=== PATIENT | female | born 1970 | race Hispanic/Latino ===

== ENCOUNTER 2019-11-18 07:58 | Inpatient (IN) ==
[2019-11-18] MEDS ORDERED: MORPHINE IV ONE (08:20)
[2019-11-18] MEDS ORDERED: TORADOL IV ONE ×2 (08:20→08:28)
[2019-11-18] MEDS ORDERED: NS 1,000 ML IV ONE ×3 (08:20→10:20)
[2019-11-18] MEDS ORDERED: ZOFRAN IV ONE (08:20)
--- NOTE | 2019-11-18 08:37 | PROVIDER DOCUMENTATION ---
HPI-Fever - General Chief Complaint: Flu Symptoms Stated Complaint: VOMITING / COLD SX Time Seen by Provider: 11/18/19 08:15 Allergies/Adverse Reactions: Patient Allergies Allergy/AdvReac Type Severity Reaction Status Date / Time No Known Allergies Allergy Verified 11/18/19 08:40 Home Medications: Home Medication List Medication Instructions Recorded Confirmed Last Taken Type NK [No Home Medications] 11/18/19 11/18/19 Unknown History - History of Present Illness-Fever Nature of Presenting Problem: patient presented with fever, flu like symptoms since sat, associated with vomiting, body aching, blood pressure was low Onset/Duration: reports: 3 days ago Timing: reports: still present Severity: reports: moderate Recent Illness?: reports: none Cognitive Baseline: alert, oriented x3 Modifying Factors: improves with: nothing, vomiting Associated Symptoms: reports: anxiety, arm pain Similar Symptoms Previously?: Yes - Glascow Coma Score Best Eye Response (Monisha): (4) open spontaneously Best Verbal Response ([place]): (5) oriented Best Motor Response (Monisha): (6) obeys commands Review of Systems - Adult - REVIEW OF SYSTEMS - ADULT Constitutional: reports: jessieque. denies: fever Eyes: reports: no symptoms reported Ears, Nose, Mouth & Throat: reports: no symptoms reported Cardiovascular: reports: no symptoms reported Respiratory: reports: no symptoms reported Gastrointestinal: reports: no symptoms reported Genitourinary: reports: no symptoms reported Integumentary: reports: no symptoms reported Neurological: reports: no symptoms reported Psychiatric: reports: no symptoms reported Endocrine: reports: no symptoms reported Hematologic/Lymphatic: reports: no symptoms reported Allergic/Immunologic: reports: no symptoms reported Past History - Adult - PAST MEDICAL HISTORY-ADULT Review of Records: reports: Nursing Assessment Review Major Childhood Illnesses: reports: denies history Cardiovascular: reports: denies history Respiratory: reports: denies history Gastrointestinal: reports: denies history Obstetrical/Gynecological: reports: denies history Genitourinary: reports: denies history Musculoskeletal: reports: denies history Neurological: reports: denies history Endocrine/Immune: reports: denies history Other Conditions: reports: denies history Physical Exam-General - PHYSICAL EXAM-ADULT Initial Vital Signs Reviewed: Yes - CONSTITUTIONAL General Appearance: alert, slow to respond (tired looling) - EYES Eyes: PERRL/EOMI - HEAD, EARS, NOSE, MOUTH & THROAT HENMT: normocephalic/atraumatic - NECK Neck: non-tender, supple - RESPIRATORY Respiratory: lungs clear, normal breath sounds - CARDIOVASCULAR Cardiovascular: regular rate, rhythm, no edema - GASTROINTESTINAL (ABDOMEN) Abdominal Exam: non tender, soft, other (rectal exam, stool was brown, no active blood) - LYMPHATIC Lymphatic: no adenopathy - MUSCULOSKELETAL Back Exam: normal inspection, no vertebral tenderness Extremity: non-tender, normal gait - SKIN Integumentary: normal turgor, warm/dry - NEUROLOGIC Neurologic: grossly normal - PSYCHIATRIC Psych/Mental Status: normal mood/affect Progress - PLAN OF CARE/RESULTS Progress/Plan/Lab Results: Vital Signs - 8 hr 11/18/19 08:07 11/18/19 08:47 Temperature 98.6 F Pulse Rate 108 H Respiratory Rate 18 Blood Pressure 96/56 116/65 O2 Sat by Pulse Oximetry 95 Laboratory Results - last 24 hr 11/18/19 11/18/19 11/18/19 08:30 08:30 08:40 WBC RBC Hgb Hct MCV MCH MCHC RDW Std Deviation Plt Count MPV Immature Gran % (Auto) Neut % (Auto) Lymph % (Auto) [place] % (Auto) Eos % (Auto) Baso % (Auto) Immature Gran # (Auto) Neut # (Auto) Lymph # (Auto) [place] # (Auto) Eos # (Auto) Baso # (Auto) Segmented Neutrophils Sodium Potassium Chloride Carbon Dioxide Anion Gap BUN Creatinine Estimated GFR/1.73 m2 BUN/Creatinine Ratio Glucose Calculated Osmolality Calcium Total Bilirubin AST ALT Alkaline Phosphatase Creatine Kinase 23 L Troponin T < 0.010 Total Protein Albumin Globulin Albumin/Globulin Ratio Amylase Lipase Urine Source CLEAN CATCH Urine Color YELLOW Urine Turbidity TURBID Urine pH 6.0 Ur Specific [place] 1.028 Urine Protein 200 A Ur Glucose (Stick) NEGATIVE Ur Ketones (Stick) TRACE A Urine Blood SMALL A Urine Nitrite NEGATIVE Urine Bilirubin NEGATIVE Urobilinogen Dipstick 6 A Urine Leukocytes SMALL A Urine WBC (Auto) 10-20 A Urine RBC (Auto) <10 U Epithel Cells (Auto) >10 A Urine Bacteria (Auto) 4+ Urine Crystals NONE SEEN Small Round Cells NONE SEEN Urine Casts GRANULAR PRESENT Urine Yeast-like Cells NONE SEEN Stool Occult Blood Influenza A (Rapid) Influenza B (Rapid) Blood Type Confirm Crossmatch 11/18/19 11/18/19 11/18/19 08:45 08:45 08:45 WBC 17.84 H RBC 1.80 L Hgb 5.2 L* Hct 17.4 L MCV 96.7 MCH 28.9 MCHC 29.9 L RDW Std Deviation 21.1 H Plt Count 257 MPV 9.1 Immature Gran % (Auto) 5.4 H Neut % (Auto) 58.5 Lymph % (Auto) 20.4 L [place] % (Auto) 14.0 H Eos % (Auto) 1.3 Baso % (Auto) 0.4 Immature Gran # (Auto) 0.96 H Neut # (Auto) 10.45 H Lymph # (Auto) 3.64 H [place] # (Auto) 2.49 H Eos # (Auto) 0.23 Baso # (Auto) 0.07 Segmented Neutrophils Not Reportable Sodium 132 L Potassium 3.7 Chloride 100 Carbon Dioxide 21 L Anion Gap 11 BUN 33 H Creatinine 0.9 Estimated GFR/1.73 m2 > 60 BUN/Creatinine Ratio 37 Glucose 114 H Calculated Osmolality 273 Calcium 8.8 Total Bilirubin 0.70 AST 60 H ALT 51 H Alkaline Phosphatase 112 H Creatine Kinase Troponin T Total Protein 10.1 H Albumin 2.5 L Globulin 8.0 Albumin/Globulin Ratio 0.0 Amylase 60 Lipase 26 Urine Source Urine Color Urine Turbidity Urine pH Ur Specific [place] Urine Protein Ur Glucose (Stick) Ur Ketones (Stick) Urine Blood Urine Nitrite Urine Bilirubin Urobilinogen Dipstick Urine Leukocytes Urine WBC (Auto) Urine RBC (Auto) U Epithel Cells (Auto) Urine Bacteria (Auto) Urine Crystals Small Round Cells Urine Casts Urine Yeast-like Cells Stool Occult Blood Influenza A (Rapid) Influenza B (Rapid) Blood Type Confirm Crossmatch 11/18/19 11/18/19 11/18/19 08:45 09:07 09:48 WBC RBC Hgb Hct MCV MCH MCHC RDW Std Deviation Plt Count MPV Immature Gran % (Auto) Neut % (Auto) Lymph % (Auto) [place] % (Auto) Eos % (Auto) Baso % (Auto) Immature Gran # (Auto) Neut # (Auto) Lymph # (Auto) [place] # (Auto) Eos # (Auto) Baso # (Auto) Segmented Neutrophils Sodium Potassium Chloride Carbon Dioxide Anion Gap BUN Creatinine Estimated GFR/1.73 m2 BUN/Creatinine Ratio Glucose Calculated Osmolality Calcium Total Bilirubin AST ALT Alkaline Phosphatase Creatine Kinase Troponin T Total Protein Albumin Globulin Albumin/Globulin Ratio Amylase Lipase Urine Source Urine Color Urine Turbidity Urine pH Ur Specific [place] Urine Protein Ur Glucose (Stick) Ur Ketones (Stick) Urine Blood Urine Nitrite Urine Bilirubin Urobilinogen Dipstick Urine Leukocytes Urine WBC (Auto) Urine RBC (Auto) U Epithel Cells (Auto) Urine Bacteria (Auto) Urine Crystals Small Round Cells Urine Casts Urine Yeast-like Cells Stool Occult Blood Influenza A (Rapid) NEGATIVE Influenza B (Rapid) NEGATIVE Blood Type Confirm O POSITIVE Crossmatch See Detail 11/18/19 09:50 WBC RBC Hgb Hct MCV MCH MCHC RDW Std Deviation Plt Count MPV Immature Gran % (Auto) Neut % (Auto) Lymph % (Auto) [place] % (Auto) Eos % (Auto) Baso % (Auto) Immature Gran # (Auto) Neut # (Auto) Lymph # (Auto) [place] # (Auto) Eos # (Auto) Baso # (Auto) Segmented Neutrophils Sodium Potassium Chloride Carbon Dioxide Anion Gap BUN Creatinine Estimated GFR/1.73 m2 BUN/Creatinine Ratio Glucose Calculated Osmolality Calcium Total Bilirubin AST ALT Alkaline Phosphatase Creatine Kinase Troponin T Total Protein Albumin Globulin Albumin/Globulin Ratio Amylase Lipase Urine Source Urine Color Urine Turbidity Urine pH Ur Specific [place] Urine Protein Ur Glucose (Stick) Ur Ketones (Stick) Urine Blood Urine Nitrite Urine Bilirubin Urobilinogen Dipstick Urine Leukocytes Urine WBC (Auto) Urine RBC (Auto) U Epithel Cells (Auto) Urine Bacteria (Auto) Urine Crystals Small Round Cells Urine Casts Urine Yeast-like Cells Stool Occult Blood NEGATIVE Influenza A (Rapid) Influenza B (Rapid) Blood Type Confirm Crossmatch Orders Category Date Time Status Cardiac Monitoring DIRECTED Care 11/18/19 09:19 Active IV Insertion ORDERED Care 11/18/19 09:19 Active Saline Loc DIRECTED Care 11/18/19 08:28 Active NPO Diet 11/18/19 08:28 Active AMYLASE [CHEM] Stat Lab 11/18/19 08:45 Completed BLOOD CULTURE [BLDCUL] Stat Lab 11/18/19 09:32 Ordered CBC WITH ELECTRONIC DIFF [HEME] Stat Lab 11/18/19 08:45 Completed CK PROFILE [SP CHEM] Stat Lab 11/18/19 08:30 Completed COMPREHENSIVE METABOLIC PANEL [CHEM] Stat Lab 11/18/19 08:[address] Stat Lab 11/18/19 09:07 Completed LACTATE, PLASMA [CHEM] Lab 11/18/19 09:48 Received LACTATE, PLASMA [CHEM] Lab 11/18/19 12:30 Uncollected LACTATE, PLASMA [CHEM] Lab 11/18/19 15:30 Uncollected LIPASE [CHEM] Stat Lab 11/18/19 08:45 Completed LRPC (RED CELLS) [BBK] Stat Lab 11/18/19 09:48 Results OCCULT BLOOD SCREEN STOOL PL Stat Lab 11/18/19 09:50 Completed PROTIME WITH INR [COAG] Stat Lab 11/18/19 09:48 Received PTT [COAG] Stat Lab 11/18/19 09:48 Received TROPONIN T Stat Lab 11/18/19 08:30 Completed TYPE & SCREEN [BBK] Stat Lab 11/18/19 09:48 Results URINALYSIS W/POSS RFLX CULT [URINALYSIS] Stat Lab 11/18/19 08:40 Completed URINE CULTURE [RM] Routine Lab 11/18/19 09:15 Ordered URINE MANUAL MICROSCOPIC [URINALYSIS] Stat Lab 11/18/19 08:40 Completed 0.9% Sodium Chloride Inj [Ns] 1,000 ml Med 11/18/19 08:20 Discontinued IV 999 mls/hr 0.9% Sodium Chloride Inj [Ns] 1,000 ml Med 11/18/19 08:28 Discontinued IV 999 mls/hr Ketorolac [Toradol] Med 11/18/19 08:20 Discontinued 30 mg IV NOW ONE Ketorolac [Toradol] Med 11/18/19 08:28 Discontinued 30 mg IV NOW ONE Morphine Med 11/18/19 08:20 Discontinued 4 mg IV NOW ONE Ondansetron [Zofran] Med 11/18/19 08:20 Discontinued 4 mg IV NOW ONE Result Diagrams: 11/18/19 08:45 11/18/19 08:45 - CONSULTS/PCP/HOSPITALIST Notification Time Discussed: 10:07 Consult Disposition: Admit (OK to admit) Departure - Departure Date of Disposition Decision: 11/18/19 Time of Disposition Decision: 09:53 DIAGNOSIS: Flu-like symptoms Anemia Qualifiers: Anemia type: unspecified type Qualified Code(s): D64.9 - Anemia, unspecified Disposition: ADMITTED INPATIENT 09 Certified Medical Emergency: Emergent Condition: Serious Referrals and Follow-Ups: None,PCP [Primary Care Provider] - - Critical Care Note This patient required my direct & personal management of CC.: No Attestation - Physician/ GILSON Attestation Patient care was provided by Advanced Practice Provider:: No The physician spent face to face time with patient:: Yes Advanced Practice Provider documentation review:: Supervising physician onsite and consulted in the evaluation and care of this patient. The physician did have a face to face encounter with the patient.
[2019-11-18 08:53] LABS: URINE SOURCE CLEAN CATCH
[2019-11-18 08:57] LABS: BILIRUBIN URINE NEGATIVE (NEGATIVE); BLOOD URINE SMALL (NEGATIVE); COLOR YELLOW; GLUCOSE URINE NEGATIVE (NEGATIVE); KETONE URINE TRACE mg/dL (NEGATIVE); LEUKOCYTES URINE SMALL (NEGATIVE); NITRITE URINE NEGATIVE (NEGATIVE); PROTEIN URINE 200 mg/dL (NEGATIVE); SP GRAVITY URINE 1.028; TURBIDITY URINE TURBID (CLEAR); UROBILINOGEN URINE 6 mg/dL (NORMAL)
[2019-11-18 09:08] LABS: BASO# 0.07 X1000 (0.0-0.2); BASO% 0.4 % (0.0-0.8); EOS# 0.23 X1000 (0.0-0.7); EOS% 1.3 % (0.0-10.0); HEMATOCRIT 17.4 % (37.0-47.0); IMM GRAN# 0.96 X1000 (0.0-0.04); IMM GRAN% 5.4 % (0.0-0.5); LYMPH# 3.64 X1000 (1.2-3.4); LYMPH% 20.4 % (20.5-51.1); MCH 28.9 PG (27-31); MCHC 29.9 g/dL (33-37); MCV 96.7 FL (81-99); MONO# 2.49 X1000 (0.11-0.59); MPV 9.1 FL (7.4-10.4); NEUT# 10.45 X1000 (1.4-6.5); NEUT% 58.5 % (42.2-75.2); PLT 257 X1000 (130-400); RDW 21.1 % (11.5-14.5); WBC 17.84 X1000 (4.8-10.8)
[2019-11-18 09:09] LABS: HEMOGLOBIN 5.2 g/dL (12.0-16.0)
[2019-11-18 09:15] LABS: UR EPITHELIAL CELLS >10 /HPF (<10); URINE BACTERIA 4+ /HPF; URINE RBC <10 /HPF (<10)
[2019-11-18 09:16] LABS: URINE CASTS GRANULAR PRESENT; URINE CRYSTALS NONE SEEN; URINE SMALL ROUND CELLS NONE SEEN; URINE YEAST NONE SEEN
[2019-11-18 09:30] LABS: INFLUENZA A NEGATIVE (NEGATIVE); INFLUENZA B NEGATIVE (NEGATIVE)
[2019-11-18 09:33] LABS: AGAP 11; ALBUMIN 2.5 g/dL (3.5-5.0); ALKALINE PHOSPHATASE 112 U/L (32-104); BUN 33 mg/dL (8-22); CALCIUM 8.8 mg/dL (8.8-10.2); CHLORIDE 100 mmol/L (98-107); COSMO 273; CREATININE 0.9 mg/dL (0.5-0.9); ESTIMATED GFR > 60; GLUCOSE 114 mg/dL (70-104); GOT 60 U/L (10-30); GPT 51 U/L (10-36); LIPASE 26 U/L (13-60); POTASSIUM 3.7 mmol/L (3.5-5.1); SODIUM 132 mmol/L (136-145); TCO2 21 mmol/L (25-35); TOTAL PROTEIN 10.1 g/dL (6.3-8.3)
[2019-11-18 10:02] LABS: OCCULT BLOOD 1 NEGATIVE (NEGATIVE)
[2019-11-18 10:09] LABS: INR 1.14; PROTIME 15.2 Seconds (11.0-16.0); PTT 25.8 Seconds (22.3-41.8)
[2019-11-18] MEDS ORDERED: VANCOMYCIN IV PER PHARMACY MISC SCH (10:15)
[2019-11-18 10:29] LABS: RETIC% 0.8 % (0.8-2.1); RETIC-HE 23.2 PG (28.2-36.6)
[2019-11-18 10:32] LABS: IRON SATURATION 31 %; TIBC 137 ug/dL; TOTAL IRON 42 ug/dL (49-151); UNBOUND IRON 95 ug/dL (112-346)
--- NOTE | 2019-11-18 10:42 | Diag Imaging Result Doc PS360 ---
FLAT/UPRIGHT ABD/1 VIEW CHEST - 11/18/2019 INDICATION: anemia; leukocytosis TECHNIQUE: COMPARISON: None FINDINGS: There are moderately extensive central and bibasilar infiltrates bilaterally that are ill-defined. These are mainly alveolar. Heart size is normal. No pneumothorax or pleural effusion. There is a nonobstructive bowel gas pattern. No free air or abnormal calcifications. IMPRESSION: Bilateral central and basilar infiltrates suggesting bronchopneumonia. Electronically signed by Jonny Prado 11/18/2019 10:39 AM
[2019-11-18] MEDS ORDERED: NS 1,000 ML ONE (10:45)
[2019-11-18] MEDS: ZOSYN 3.375 GM in NS 50 ML IV SCH ×2 (10:54→19:02)
[2019-11-18] MEDS ORDERED: VANCOMYCIN 1 GM/NS 1 GM/250 ML IVPB IV SCH (11:00)
--- NOTE | 2019-11-18 11:15 | Diag Imaging Result Doc PS360 ---
CT ABD/PELVIS W/IV CONT ONLY - 11/18/2019 INDICATION: n/v; fever; hx PID; hx abscess COMPARISON: 05/23/2015 FINDINGS: There are numerous tiny lytic bony lesions diffusely throughout the entire skeleton, numbering in the thousand. These were not present previously. There are moderate infiltrates in the lung bases mainly in the lower lobes. These appear alveolar. Heart size is grossly normal. The liver, gallbladder, spleen, pancreas, adrenals, and kidneys are normal. There is enlargement of the uterine cervix. This measures 4.3 x 5.1 cm in AP and lateral dimensions. This is also hypoenhancing. Remainder of the uterus appears normal. Urinary bladder and rectum are normal. No adenopathy. No fluid collections. No bowel obstruction or inflammation. Normal appendix. IMPRESSION: 1. Extensive bibasilar infiltrates suggesting bronchopneumonia. 2. Numerous lytic lesions throughout the entire skeleton indicating severe metastatic disease. The source is unclear. Full workup will be necessary. 3. Slightly abnormal appearance of the uterine cervix. Visual inspection recommended. This exam was performed using automated exposure control, adjustment of mA or kV according to patient size, and/or use of iterative reconstruction technique Electronically signed by Jonny Prado 11/18/2019 11:13 AM
[2019-11-18] MEDS ORDERED: TYLENOL PO PRN ×2 (11:20→20:11)
[2019-11-18] MEDS ORDERED: ZOFRAN IV PRN (11:20)
[2019-11-18] MEDS ORDERED: PROTONIX 80 MG in NS 80 ML IV SCH (11:30)
--- NOTE | 2019-11-18 12:45 | Diag Imaging Result Doc PS360 ---
US PELVIC NON-OB COMPLETE - 11/18/2019 INDICATION: check for uterine mass TECHNIQUE: COMPARISON: None FINDINGS: There is ill-defined hypoechogenicity of the uterine cervix. This is poorly visible on this portable transabdominal exam. No free fluid. The ovaries are normal. The uterus measures 9 x 6.4 x 5.8 cm. Endometrial stripe thickness is 2.1 cm. The right ovary measures 3.1 x 2.4 x 1.8 cm. The left ovary measures 4.7 x 4.6 x 3.1 cm. IMPRESSION: Suboptimal exam of the uterine cervix. Cervical mass cannot be excluded. Again, physical exam recommended. Electronically signed by Jonny Prado 11/18/2019 12:43 PM
[2019-11-18] MEDS ORDERED: CARAFATE LIQUID PO SCH (14:00)
[2019-11-18 14:27] LABS: FERRITIN 286 ng/mL (13-150)
--- NOTE | 2019-11-18 15:16 | HISTORY AND PHYSICAL ---
PRIMARY CARE PROVIDER: None. CHIEF COMPLAINT: Suprapubic pain along with the nausea, vomiting, and black tarry stools. HISTORY OF PRESENT ILLNESS: Ms. Hanna Unger is a 49-year-old female that speaks only [place]ish, presents today with complaints of black tarry stools since . She has about 2 times a day bowel movement, along with some nausea, vomiting. The emesis is yellow in color. She has been having dizziness, lightheadedness, being pale, weak, fatigued, and some subjective fevers with chills. Denies any other urinary symptoms other than the suprapubic tenderness. There is no abdominal pain anywhere else. Lab work reveals that she has anemia with a hemoglobin of 5, hematocrit of 17. There is some mild iron deficiency. Urinalysis reveals a urinary tract infection. Abdominal and pelvic CT also shows some bronchopneumonia. There are also some lytic lesions throughout the entire skeleton which is indicated by some sort of severe metastatic disease. There is a slightly abnormal appearance of the uterus and cervix, its enlarged. So the question is whether she has a uterine cancer with metastasis to the bone, along with severe anemia and possible upper GI bleed as the stools are black tarry. Denied coughing up any colors. It is also noted that she denies taking any medications that can be GI irritating, such as ibuprofen or aspirin. PAST MEDICAL HISTORY: 1. Pelvic inflammatory disease. 2. Tubo-ovarian abscess. SURGICAL HISTORY: 1. Oophorectomy. 2. Left hand surgery due to accidental injection. SOCIAL HISTORY: Denies tobacco, alcohol, or illicit drug use. She works at the [employer]. She is not . No kids. FAMILY HISTORY: Mother had hypertension. Father, she did not know. ALLERGIES: No known drug allergies. HOME MEDICATIONS: None. REVIEW OF SYSTEMS: Fourteen point review of systems are complete and all are negative except for those mentioned above in HPI. PHYSICAL EXAMINATION: VITAL SIGNS: Temperature 98.6 degrees, heart rate 108, respiratory rate 18, blood pressure 116/65, O2 saturation 95% on room air. She is 4 feet 9 inches tall, 140 pounds, BMI is 30.3. GENERAL: Ms. Hanna Unger is a 49-year-old female. She is in no acute distress. She is able to answer questions appropriately through her friend who speaks [place] as well. We will also need to get her a hotline set up for communication. HEENT: Atraumatic, normocephalic. Pupils equal, round, reactive to light. Extraocular movements intact. Mucous membranes are dry. Sclera is pale. NECK: Trachea midline. CARDIOVASCULAR: S1, S2. Tachycardic rate and rhythm. No rubs, gallops, murmurs. No lower extremity edema. There are +2 dorsalis and radial pulses. Negative JVD or carotid bruits. PULMONARY: Clear to auscultation bilateral breath sounds. No accessory muscle use or work of breathing noted. GI: Soft. Tender in the suprapubic region. Hypoactive bowel sounds. EXTREMITIES: Moves all extremities equally. Full range of motion. NEUROLOGIC: A O x3. Follows commands. Sensory is intact. SKIN: Warm, dry, intact but pale. LABORATORY DATA: White blood cells 17,000 hemoglobin 5, hematocrit 17, platelet count 257,000. INR is 1.14, PTT is 25.8. Sodium 132, potassium 3.7, BUN 33, creatinine 0.9, glucose 114, calcium 8.8. Iron is 42, total iron binding capacity is 137, saturation 31, unsaturated 95. Ferritin is pending. Bilirubin 0.70, AST 60, ALT 51, alkaline phosphatase 112. CK 23. Troponin less than 0.01. Albumin is 2.5. Her protein level is elevated at 10. Amylase 60, lipase 26, lactate 1.0. Vitamin B12 1,633. Urinalysis, 200 protein, trace ketones, small blood, 6 urobilinogen, small leukocytes, 10 to 20 white blood cells, 4+ bacteria. Negative for blood in the stool. Negative flu. IMAGING: Abdominal x-ray and chest x-ray: Bilateral central and basilar infiltrates suggesting bronchopneumonia. Abdominal and pelvic CT: Extensive bibasilar infiltrates suggesting bronchopneumonia. Numerous lytic lesions throughout the entire skeleton, indicating severe metastatic disease. The source is unclear; full workup will be necessary. Slightly abnormal appearance of uterus and cervix, visual inspection recommended. ASSESSMENT AND PLAN: 1. Symptomatic anemia, possible from newly found cancer or from upper gastrointestinal bleed. There are reports of black tarry stools since . However, there is no blood in the stool sample that was obtained. She does have nausea, vomiting along with it. She has been lightheaded and dizzy, pale, fatigued, weak, diarrhea twice a day since . We will do Protonix drip, Carafate, and GI consult. Denies any medications that could be irritating to the stomach lining. We will do q.6 hours hemoglobin and hematocrit just to make sure she does not continue to drop in her hemoglobin. She will receive 2 units of packed red blood cells. 2. Bronchopneumonia. We will do a sputum culture. She is on vancomycin and Zosyn as she has an elevated white count of 17,000. There are no signs or symptoms of respiratory distress or hypoxia. 3. Urinary tract infection. The only symptom is suprapubic tenderness and again, she is on Zosyn which will cover gram-negative but she is also on vancomycin as well. She is getting IV fluid hydration. 4. 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 There is report of the abnormal appearance of the uterus and cervix. We are going to get a ultrasound of this to fully evaluate and may possibly have to get a LOGGER consult. Hematology/Oncology has also been consulted. In the imaging it shows a 4.3 x 5.1, lateral dimensions of the cervix on the uterus, so it could be more cervical cancer. 5. History of pelvic inflammatory disease and tubo-ovarian abscess. 6. Deep venous thrombosis prophylaxis. SCDs. Dictated by PRAVEENA Nathan for Long Chaudhari MD Addendum: Patient seen and examined by myself. Agree with PRAVEENA note. It reflects my assessment and plan. Patient is being admitted to hospital for anemia. We are not sure if there is any GI bleeding causing this anemia or malignancy. In CT of abdomen there is multiple bony mets. Will transfer this patient to [facility]. We have ordered to transfuse 2 units of blood and will transfuse more if needed. GI and Oncology has been consulted. Will follow recommendations. cc: PRAVEENA Nathan MD [facility]
[2019-11-18 15:47] LABS: HEMATOCRIT 26.6 % (37.0-47.0); HEMOGLOBIN 8.6 g/dL (12.0-16.0)
--- NOTE | 2019-11-18 16:15 | ED EKG INTERP ---
This chart was entered by Patricia Chavez Scribe, acting as scribe for Kassy Laird MD. EKG Interpretation - EKG Time of EKG reading by physician:: 10:55 EKG Read and Signed by:: Kassy Laird EKG Interpretation (*Must complete 3 of following elements*): Normal Rate: 94 Rhythm: NSR [place]: normal [place] Interval: normal Comments: normal ECG Attestation - Physician/ GILSON Attestation The physician spent face to face time with patient:: Yes Advanced Practice Provider documentation review:: Supervising physician onsite and consulted in the evaluation and care of this patient. The physician did have a face to face encounter with the patient. This chart was documented by the indicated scribe, (Patricia Chavez Scribe) and accurately reflects the services I performed and decisions made by me, Kassy Laird MD, as attested by the provider's signature.
[2019-11-18] MEDS ORDERED: MORPHINE IV PRN (17:21)
--- NOTE | 2019-11-18 18:25 | Diag Imaging Result Doc PS360 ---
EXAM: CT THORAX W/CONTRAST 11/18/2019 HISTORY: r/o lung malignancy, multiple mets TECHNIQUE: This exam was performed using automated exposure control, adjustment of mA or kV according to patient size, and/or use of iterative reconstruction technique. COMMENT: There are no previous thoracic studies available for comparison. There is no evidence of adenopathy. There is fluid in the left major fissure and small amounts of fluid are present in the costophrenic sulci. There are patchy alveolar opacities present in both lower lobes as well as the right middle lobe consistent with pneumonia. There is a nodule in the right lower lobe on image 51 which is not clearly calcified. There are multiple small lytic lesions scattered throughout the regional skeleton. There is a healing fracture of the lateral left ninth rib. IMPRESSION: 1. Bibasilar pneumonia. Nonspecific nodule in the right lower lobe. 2. Diffuse small lytic lesions in the skeleton. The differential diagnosis would include metastatic disease and multiple myeloma. Electronically signed by Joe Baird 11/18/2019 6:22 PM
[2019-11-18] MEDS: PROTONIX 80 MG in NS 80 ML IV SCH (21:45)
[2019-11-18] MEDS: CARAFATE LIQUID PO SCH (21:47)
[2019-11-18 22:23] LABS: HEMOGLOBIN 7.6 g/dL (12.0-16.0)
[2019-11-18 22:48] LABS: HEMATOCRIT 24.1 % (37.0-47.0)
[2019-11-19] MEDS: CARAFATE LIQUID PO SCH ×4 (01:07→20:11)
[2019-11-19] MEDS: ZOSYN 3.375 GM in NS 50 ML IV SCH ×4 (01:07→20:09)
[2019-11-19 04:03] LABS: HEMATOCRIT 25.7 % (37.0-47.0); HEMOGLOBIN 8.2 g/dL (12.0-16.0)
[2019-11-19 07:23] LABS: BASO# 0.08 X1000 (0.0-0.2); BASO% 0.8 % (0.0-0.8); EOS# 0.31 X1000 (0.0-0.7); EOS% 3.1 % (0.0-10.0); HEMATOCRIT 24.5 % (37.0-47.0); HEMOGLOBIN 7.7 g/dL (12.0-16.0); IMM GRAN# 0.77 X1000 (0.0-0.04); IMM GRAN% 7.6 % (0.0-0.5); LYMPH# 2.35 X1000 (1.2-3.4); LYMPH% 23.3 % (20.5-51.1); MCH 29.3 PG (27-31); MCHC 31.4 g/dL (33-37); MCV 93.2 FL (81-99); MONO# 1.17 X1000 (0.11-0.59); MONO% 11.6 % (1.7-9.3); MPV 9.3 FL (7.4-10.4); NEUT# 5.41 X1000 (1.4-6.5); NEUT% 53.6 % (42.2-75.2); PLT 211 X1000 (130-400); RBC 2.63 XMIL (4.2-5.4); RDW 18.7 % (11.5-14.5); WBC 10.09 X1000 (4.8-10.8)
[2019-11-19 07:33] LABS: INR 1.09; PROTIME 14.3 Seconds (11.0-16.0)
[2019-11-19 07:34] LABS: PTT 28.9 Seconds (22.3-41.8)
[2019-11-19 07:52] LABS: AGAP 8; ALB/GLOB RATIO 0.3; ALBUMIN 1.9 g/dL (3.5-5.0); ALKALINE PHOSPHATASE 88 U/L (32-104); BANDS 9 % (0-1); BUN 17 mg/dL (8-22); CALCIUM 8.5 mg/dL (8.8-10.2); CHLORIDE 107 mmol/L (98-107); COSMO 275; CREATININE 0.7 mg/dL (0.5-0.9); EOS 1 % (1-10); ESTIMATED GFR > 60; GLUCOSE 91 mg/dL (70-104); GOT 28 U/L (10-30); GPT 30 U/L (10-36); LYMPHS 25 % (21-51); MAGNESIUM 1.6 mg/dL (1.5-2.7); MONO 4 % (1-9); POTASSIUM 3.5 mmol/L (3.5-5.1); SEGS 58 % (42-75); SODIUM 137 mmol/L (136-145); TCO2 22 mmol/L (25-35); TOTAL PROTEIN 8.6 g/dL (6.3-8.3)
[2019-11-19] MEDS: PROTONIX 80 MG in NS 80 ML IV SCH (08:08)
[2019-11-19] MEDS: MORPHINE IV PRN ×3 (08:15→20:15)
[2019-11-19] MEDS: ZOFRAN IV PRN (08:20)
[2019-11-19 09:33] LABS: HEMATOCRIT 23.3 % (37.0-47.0); HEMOGLOBIN 7.5 g/dL (12.0-16.0)
[2019-11-19] MEDS ORDERED: PROTONIX IV SCH (11:20)
[2019-11-19] MEDS: VANCOMYCIN 1 GM/NS 1 GM/250 ML IVPB IV SCH (11:24)
[2019-11-19] MEDS: PROTONIX IV SCH (11:32)
--- NOTE | 2019-11-19 12:42 | PROGRESS NOTE ---
DATE: 11/19/2019 SUBJECTIVE: She presented with suprapubic pain along with nausea, vomiting, and black tarry stools. Hanna is a 49-year-old female who speaks only Mongolian, presented with history of black tarry stools since . This was almost a week ago. She has had about 2 times a day bowel movements along with nausea, vomiting, emesis, yellow in color. She has been having dizziness, lightheadedness, being pale and fatigued, and some subjective fever with chills. Denies any urinary tract symptoms other than suprapubic tenderness. There is no abdominal pain anywhere. Labs reveal she has anemia, hemoglobin of 5, hematocrit 17. She has some mild iron deficiency. Urinalysis revealed urinary tract infection. Abdominal and pelvic CT showed some bronchopneumonia. There are also some lytic lesions throughout the entire skeleton which indicates some sort of possible metastatic disease. She has abnormal appearing uterus and cervix is enlarged. The question is whether she has some type of underlying cancer along with severe anemia and possible upper GI bleed. PAST MEDICAL HISTORY: 1. Pelvic inflammatory disease. 2. Tubo-ovarian abscess. PAST SURGICAL HISTORY: 1. Oophorectomy. 2. Left hand surgery due to accidental injection. PHYSICAL EXAMINATION: General: Today she appears comfortable, remains afebrile. Vital Signs: Temperature 97.8 degrees, pulse 87, respirations 16, blood pressure 107/69. HEENT: Pupils are equal and round. Lungs: Clear in all lung wayne. Cardiovascular: Regular rhythm and rate without murmur or S3. Input and Output: Urine output is 900 mL. DIAGNOSTIC DATA: Pelvic ultrasound, suboptimal exam, of the uterine cervix, cervical mass cannot be excluded. Her CT of abdomen and pelvis: Extensive bibasilar infiltrates suggesting bronchopneumonia. Numerous lytic lesions of the entire skeleton indicating severe metastatic disease, source is unclear, slightly abnormal appearance of the uterine cervix. Chest CT: Bibasilar pneumonia, nonspecific nodule in the right lower lobe, diffuse small lytic lesion in the skeletal. Differential diagnosis could include metastatic disease or multiple myeloma. GI is consulted. Dr. Lowe has been consulted. Dr. Baxter, I believe, is consulted as well, and Dr. Thelma Vasquez. REVIEW OF HER ORDERS: She is on Carafate 1 g p.o. q.6 hours, Protonix 40 mg IV q.12h, Zosyn 3.375 g IV q.6, vancomycin 1 g q.18 hours. Her blood counts stable at hematocrit 24 hemoglobin 7.7. Chemistry: Sodium 137, potassium 3.5, chloride 107, BUN 17, creatinine 0.7. cc: Matthieu Clark MD
--- NOTE | 2019-11-19 12:47 | GASTROENTEROLOGY CONSULTATION ---
DATE: 11/19/2019 REASON FOR CONSULT: Abdominal pain and GI bleed. HISTORY OF PRESENT ILLNESS: Ms. Guido is a 49-year-old female. She had been to [facility] on Saturday with complaints of chills, abdominal pain, back pain, nausea, vomiting. Last night she came to [facility] complaining that she had abdominal pain and noticed that her stools were black and tarry. This is the first time she is noticing that her stools are black and tarry. She did mention that she had severe nausea and vomiting. Her vomit looked yellow in color, and said that this has been going on from Saturday onwards. Anything that she drinks makes her throw up. Her pain in the abdominal area is worse when she gets up in the morning. She also mentioned that whenever she goes to the toilet, she has terrible pain and she feels like she is going to pass out, but she has never fallen down, take precautions by sitting for some time. The patient mentioned that she had a colonoscopy done 6 months back, but she does not remember exactly when, and said that it was normal. The patient also mentioned that she has severe back pain, and whenever she has an abdominal pain, it radiates to her back. She does have a history of tumor and cyst on her ovaries that was removed 3 years back. The patient's abdominal x- ray on admission showed bilateral central and bibasilar infiltrates suggesting bronchopneumonia. Her abdomen and pelvis CT has shown that she has extensive bibasilar infiltrates suggesting bronchopneumonia, and numerous lytic lesions throughout the entire skeleton, indicating severe metastatic disease, and slightly abnormal appearance of the uterine cervix. The patient's pelvic ultrasound has shown that she has suboptimal exams of the uterine cervix. Cervical mass cannot be excluded. Chest CT has shown bibasilar pneumonia, nonspecific nodule in the right lower lobe, diffuse small lytic lesions in the skeleton, possibility of multiple myeloma. PAST MEDICAL HISTORY: The patient has pelvic inflammatory disease, tumor and cyst on the ovary s/p surgery. 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 SOCIAL HISTORY: The patient is single, currently lives with hernboyfriend. She has denied any tobacco, alcohol, or illicit drug use. 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 FAMILY HISTORY: Her mother had hypertension. ALLERGIES: No known drug allergies. HOME MEDICATIONS: The patient takes Tylenol occasionally for any pain or fever. REVIEW OF SYSTEMS: As per HPI. Otherwise, 12-point review of system is negative. PHYSICAL EXAMINATION: Vital Signs: Temperature 97.8 degrees, pulse 87, respirations 16, blood pressure 107/69, oxygen saturation 100% on room air. The patient's weight is 140 pounds, BMI is 30.3 kg/m2. General: She is alert, oriented x3, and in no acute distress. Speaks Telugu as her main language. I had to use the interpretation line to gather all the information from the patient. HEENT: Pale conjunctivae. No icterus. PERRL. Neck: Supple. Lungs: Clear to auscultation in the anterior wayne. Cardiovascular: Regular rate and rhythm. Abdomen: Soft. Generalized tenderness in the lower quadrants. Active bowel sounds heard in all 4 quadrants. Extremities: No clubbing, no cyanosis, no edema. Pedal pulses 2+ present bilaterally. Neurologic: She is alert and oriented x3. Nonfocal. Cranial nerves II through XII are grossly intact. LABORATORY DATA: WBCs are 10.09, RBCs 2.63, hemoglobin is 7.5, hematocrit is 23.3, platelet count is 211,000. PT 14.3, INR is 1.09. Sodium 137, potassium 3.5, chloride 107, carbon dioxide 22, anion gap 8, BUN 17, creatinine 0.7, glucose 91, calcium 8.5. Magnesium 1.6. Total bilirubin 0.50, AST 28, ALT 30, alkaline phosphatase 88. Urinalysis has shown 200 of protein, trace of ketones, small amount of blood, and small amount of leukocytes. The patient's stool for occult blood was negative. IMPRESSION AND PLAN: Abdominal Pain Bronchopneumonia Nausea and Vomiting Anemia Melena UTI Possible multiple myeloma PLAN: Ms. Guido is a 49-year-old female. GI has been consulted for her abdominal pain and GI bleed. The patient is currently receiving antibiotics, Zosyn and vancomycin, for her pneumonia. She is on GI prophylaxis, Protonix 40 mg IV twice a day for her GI bleed. She is receiving antiemetic, Zofran for her nausea and vomiting. She is also receiving Carafate 1 gram every 6 hours. We have put an Oncology consult for possible multiple myeloma. We will plan to do an EGD tomorrow to find out the cause of her GI bleed. Further plan of care will be based on the EGD findings. We have discussed the risks, benefits, and alternatives of the procedure to the patient. The patient acknowledges understanding of the instructions and the plan of care. This plan was discussed with Dr. Keller. Thank you for your consult. Please call us for any further questions or concerns. Dictated by PRAVEENA Alonzo for Bay Keller MD cc: Bay Keller MD I have seen and examined the patient myself and I agree with the above plan of care. I have discussed the above with the patient and all questions were answered. Please call us with any further questions. [facility]
--- NOTE | 2019-11-19 13:41 | EKG Report ---
Test Performed on : 11/18/2019 10:55:19 AM Test Reason : anemia Blood Pressure : / mmHG Vent. Rate : 094 BPM Atrial Rate : 094 BPM P-R Int : 140 ms QRS Dur : 074 ms QT Int : 328 ms P-R-T Axes : 050 036 035 degrees QTc Int : 410 ms Normal sinus rhythm. Normal ECG No previous ECGs available Unconfirmed Result
--- NOTE | 2019-11-19 15:04 | Diag Imaging Result Doc PS360 ---
MRI PELVIS W/WO CONTRAST - 11/19/2019 INDICATION: Abnormal appearing cervix with bone mets TECHNIQUE: COMPARISON: CT and ultrasound from 11/18/2019 FINDINGS: On this exam, the uterine cervix appears more normal. No definite mass or signal abnormality. No abnormal contrast enhancement. Aside from a couple of nabothian cysts, signal is homogeneous in the cervix. There is a small myometrial masslike area at the right side at the uterine fundus superiorly. This area is heterogeneous in signal. Enhancement is fairly uniform. This is round and measures about 3.5 cm. Otherwise, no other masses or fluid collections. Urinary bladder and rectum are normal. IMPRESSION: On the MRI, the uterine cervix appears grossly normal. There is a masslike area at the right side of the uterine fundus which is most likely a uterine fibroid. Electronically signed by Jonny Prado 11/19/2019 3:02 PM
--- NOTE | 2019-11-19 15:16 | Diag Imaging Result Doc PS360 ---
SKELETAL SURVEY (ADULT) - 11/19/2019 INDICATION: Bone mets TECHNIQUE: 17 views of the axial and appendicular skeleton were obtained COMPARISON: CT from 11/18/2019 FINDINGS: There are numerous tiny lytic bony masses diffusely throughout the spine, ribs, skull, pelvis, and both hips. There are a few scattered small lytic lesions in the femurs and thighs bilaterally. The arms are overall spared. IMPRESSION: Numerous tiny bony lytic lesions consistent with metastases or multiple myeloma. Electronically signed by Jonny Prado 11/19/2019 3:13 PM
--- NOTE | 2019-11-19 22:28 | CONSULTATION ---
DATE OF CONSULTATION: 11/19/2019 REASON FOR CONSULT: Abnormal appearance of the uterine cervix. HISTORY OF PRESENT ILLNESS: Ms. Guido is a 49-year-old, G0, female who presents with complaint of lower back pain. Describes back pain starting 3 months ago and progressively worsening. She currently denies abdominal pain, but admits to an abnormal change in stool. Describes black tarry colored stool. The patient also admits to a 25 pounds weight loss over 4 months, but denies regular exercise. X-ray showed bilateral and central infiltrates suggestive of bronchopneumonia. CT showed skeletal lytic lesions concerning for metastatic disease and the abnormal appearance to the uterus and cervix. Ultrasound could not exclude a cervical mass due to suboptimal views. [employer] consulted to rule out possible cervical mass/primary cervical cancer. The patient reports [facility] care received at [facility] with Dr. Collette Valdovinos. A recent Pap 3 months ago showed negative intraepithelial lesions or malignancies. PAST MEDICAL HISTORY: Pelvic inflammatory disease, tubo-ovarian abscess. PAST SURGICAL HISTORY: Left hand surgery. The patient reports oophorectomy however both ovaries noted on ultrasound, possible salpingectomy unilaterally. OBSTETRICAL HISTORY: G0. [employer] HISTORY: Regular menstrual cycles. Normal Pap August 2019, negative intraepithelial lesions or malignancies. History of PID and TOA. MEDICATIONS: None. ALLERGIES: No known drug allergies. SOCIAL HISTORY: Denies tobacco, alcohol, or drug use. 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 FAMILY HISTORY: Mother with hypertension. Father unknown. PHYSICAL EXAMINATION: Vital signs: Temp 97.9 degrees Fahrenheit, pulse rate 78, respiration rate 16, blood pressure 117/64, O2 sats 98% on room air. Weight 140 pounds. Height 4 feet 9 inches tall. BMI of body mass index 30.3 kg/m2. General: The patient is alert, awake, oriented x3, in no acute distress. Abdomen: Soft, nontender to palpation. Positive bowel sounds in all 4 quadrants. Pelvic exam: Sterile speculum exam, normal-appearing cervix. No masses noted. Healthy vaginal tissue. Bimanual exam difficult to fully assess due to body habitus, but no masses noted. Uterus appears mobile. No palpable masses noted. Rectal Exam: No masses noted in the vaginal rectal septum. LABS: WBCs 10.09, hemoglobin 7.7, hematocrit 24.5, platelets 211,000. CT scan of the pelvis showed slightly abnormal appearance of the uterine cervix measuring 4.3 x 5.1 cm in anterior- posterior and lateral dimensions. Also appearing hypoenhancing. Remainder of the uterus appears normal and recommend visual inspection. Pelvic ultrasound showed ill-defined hypo-echogenicity of the uterine cervix. The ovaries appeared normal. The uterus measured 9 x 6.4 x 5.8 cm and endometrial stripe thickening thickness 2.1 cm with normal right and left appearing ovaries. IMPRESSION: Ms. Guido is a 49-year-old, G0, female, who presents initially to the hospital with severe back pain, found to have bronchopneumonia and bony metastasis and questionable cervical mass. PLAN: The patient is currently being treated appropriately via antibiotics for her pneumonia. Gastroenterology consulted for black tarry stools/gastrointestinal bleed. Plan for esophagogastroduodenoscopy tomorrow. Oncology consulted for possible multiple myeloma. After a thorough physical exam and reviewing the patient's history of normal [employer] annual exam 3 months ago with a normal Pap completed, unlikely bony metastasis is caused from a cervical mass. No [employer] etiology noted on physical exam. [facility] consult very much appreciated. Continue treatment per primary team and consulting services.
[2019-11-20] MEDS: PROTONIX IV SCH ×2 (00:01→12:26)
[2019-11-20] MEDS: CARAFATE LIQUID PO SCH ×3 (02:20→15:12)
[2019-11-20] MEDS: ZOSYN 3.375 GM in NS 50 ML IV SCH ×3 (02:20→15:11)
[2019-11-20] MEDS: VANCOMYCIN 1 GM/NS 1 GM/250 ML IVPB IV SCH ×2 (03:30→03:52)
[2019-11-20 07:45] LABS: BASO# 0.07 X1000 (0.0-0.2); BASO% 0.7 % (0.0-0.8); EOS# 0.44 X1000 (0.0-0.7); EOS% 4.4 % (0.0-10.0); HEMATOCRIT 24.7 % (37.0-47.0); HEMOGLOBIN 7.7 g/dL (12.0-16.0); IMM GRAN# 0.92 X1000 (0.0-0.04); IMM GRAN% 9.3 % (0.0-0.5); LYMPH# 2.38 X1000 (1.2-3.4); LYMPH% 23.9 % (20.5-51.1); MCH 29.7 PG (27-31); MCHC 31.2 g/dL (33-37); MCV 95.4 FL (81-99); MONO# 1.17 X1000 (0.11-0.59); MONO% 11.8 % (1.7-9.3); MPV 9.1 FL (7.4-10.4); NEUT# 4.96 X1000 (1.4-6.5); NEUT% 49.9 % (42.2-75.2); PLT 229 X1000 (130-400); RBC 2.59 XMIL (4.2-5.4); RDW 18.7 % (11.5-14.5); WBC 9.94 X1000 (4.8-10.8)
[2019-11-20 07:51] LABS: AGAP 7; ALB/GLOB RATIO 0.3; ALBUMIN 2.1 g/dL (3.5-5.0); ALKALINE PHOSPHATASE 81 U/L (32-104); BUN 9 mg/dL (8-22); CALCIUM 8.9 mg/dL (8.8-10.2); CHLORIDE 103 mmol/L (98-107); COSMO 266; CREATININE 0.7 mg/dL (0.5-0.9); ESTIMATED GFR > 60; GLUCOSE 78 mg/dL (70-104); GOT 19 U/L (10-30); GPT 24 U/L (10-36); MAGNESIUM 1.4 mg/dL (1.5-2.7); POTASSIUM 3.3 mmol/L (3.5-5.1); SODIUM 134 mmol/L (136-145); TCO2 24 mmol/L (25-35); TOTAL BILIRUBIN 0.86 mg/dL (0.20-1.00); TOTAL PROTEIN 9.3 g/dL (6.3-8.3)
--- NOTE | 2019-11-20 08:32 | HEMO/ONC CONSULTATION ---
DATE: 11/19/2019 ADMITTING PHYSICIAN: Long Chaudhari MD REQUESTING PHYSICIAN: Long Chaudhari MD We appreciate this consult. CHIEF COMPLAINT: Bony metastasis. HISTORY OF PRESENT ILLNESS: Ms. Guido is a pleasant 49-year-old female who comes in the [facility] Emergency Department with complaints of black tarry stools for about 1 week. The patient also reports some nausea and vomiting with dizziness and lightheadedness. She also reports that she has been having fevers and chills with night sweats and weight loss of unspecified amount. The patient was found to be anemic with a hemoglobin of 5 as well as with iron deficiency. Urinalysis revealed a urinary tract infection. The patient underwent CT of the abdomen and pelvis which showed bronchopneumonia as well as lytic lesions throughout the entire skeleton, likely related to metastatic disease. Additionally, there was an abnormal appearance to the uterus and cervix, appearing enlarged on the scan. The patient was admitted for treatment. We are consulted secondary to bony metastasis. PAST MEDICAL HISTORY: 1. Pelvic inflammatory disease. 2. Tubo-ovarian abscess. PAST SURGICAL HISTORY: 1. Oophorectomy. 2. Left hand surgery. SOCIAL HISTORY: The patient does not use tobacco, alcohol or illicit drugs. 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 FAMILY HISTORY: The patient has no history of hematologic or oncologic disease. Of note, the patient does not know her father. MEDICATIONS ON ADMISSION: None. ALLERGIES: The patient has no known drug allergies. REVIEW OF SYSTEMS: A 14-point review of systems was obtained and is negative except for mentioned in the HPI. PHYSICAL EXAMINATION: Ms. Guido is a pleasant 49-year-old female lying supine in bed, in no immediate distress. Vital signs: Temperature is 97.8, blood pressure 115/68, heart rate 78, respirations 16, O2 saturation is 100% on room air. HEENT: Normocephalic and atraumatic. Mucous membranes are pale and moist. Sclerae anicteric. Extraocular movements were intact. Neck is supple. Lungs are clear to auscultation bilaterally. Chest expansion is equal bilaterally. Cardiovascular: S1 and S2 are heard without murmur, rub or gallop. Abdomen soft. Tender to palpation in the right upper quadrant and right lower quadrant. Bowel sounds are positive in all quadrants. No rebound or guarding noted. Extremities: No cyanosis, clubbing or edema. Dermatologic: No rashes, bruises or lesions. Neurologic: The patient is awake, alert and oriented x3. Has no focal deficit. DIAGNOSTIC DATA: Hemoglobin is 7.5, hematocrit 23.3, white blood cell count 10.09, platelets 211. Sodium is 137, potassium 3.5, chloride 107, CO2 is 22, BUN is 17, creatinine 0.7, and glucose is 91. Magnesium 1.6. Iron saturation 31%. Ferritin 286. Imaging studies: CT of the chest reveals bibasilar pneumonia with small diffuse lytic lesions in the skeleton related to metastatic disease versus multiple myeloma. CT of the abdomen and pelvis reveals bibasilar pneumonia with an entire skeleton with lytic lesions and abnormal appearance to the cervix. Ultrasound of the pelvis reveals a questionable cervical mass. ASSESSMENT AND PLAN: 1. 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 We will check a bone scan and skeletal survey as well as MRI of the pelvis. We will check an SPEP, LDH and beta 2 microglobulin. 2. Anemia with reported melena. Gastroenterology has been consulted with EGD scheduled. 3. Bronchopneumonia, currently on antibiotics. 4. Urinary tract infection. Currently on antibiotics. 5. History of pelvic inflammatory disease and ovarian abscess, status post oophorectomy. 6. We will follow along with you and make further recommendations pending outcomes. The above reflects the history, exam, assessment and plan of Dr. Lowe. Dictated by PRAVEENA Alfonso for Ghulam Lowe MD cc: PARVEENA Alfonso MD
[2019-11-20] MEDS ORDERED: KLOR-CON PO SCH (09:00)
[2019-11-20] MEDS ORDERED: MAG-OX PO SCH (09:00)
[2019-11-20] MEDS: MORPHINE IV PRN ×2 (09:05→18:00)
[2019-11-20] MEDS: ZOFRAN IV PRN (09:05)
[2019-11-20] MEDS ORDERED: DIPRIVAN 1% ONE ×2 (09:21→10:10)
[2019-11-20] MEDS ORDERED: FENTANYL ONE ×2 (09:21→10:13)
--- NOTE | 2019-11-20 09:56 | PROGRESS NOTE ---
DATE: 11/20/2019 SUBJECTIVE: Mr. Guido had a good night and is comfortable and rested well. She is breathing comfortably. OBJECTIVE: Vital signs: She remains afebrile, temperature 98.2, pulse 75, respirations 18, blood pressure 112/61. HEENT: Pupils are equal and round. Lungs: Clear in all lung wayne. Cardiovascular exam: Regular rhythm and rate without murmur or S3. Abdomen: Soft, nondistended, nontender. Skin: Warm and dry. Urine output 1000 mL. ASSESSMENT AND PLAN: 1. Bony metastasis with questionable etiology. I am going to check bone scan and skeletal survey as well as MRI of the pelvis and will check SPEP and LDH and beta-2 microglobulin. 2. Anemia. Reported melena. GI is following. EGD is scheduled. 3. Bronchopneumonia currently on antibiotics. 4. Urinary tract infection on antibiotics. 5. Pelvic inflammatory disease and ovarian abscess status post oophorectomy. Pelvic exam is unremarkable. 6. Nutrition looks good. Her lab: Hematocrit is 24, hemoglobin 7.7. Electrolytes unremarkable. Her magnesium is 1.4, so I will give a little bit of magnesium and potassium today by mouth. Note, her albumin was 1.9 when she came, is 2.1 at this time, which I presume represents poor p.o. intake, protein calorie malnutrition. cc: Matthieu Clark MD
[2019-11-20] MEDS ORDERED: EPINEPHRINE SYRINGE ONE (10:41)
--- NOTE | 2019-11-20 10:55 | ENDOSCOPY OPERATIVE NOTE ---
[facility] ENDOSCOPY OPERATIVE NOTE , EGD PROCEDURE REPORT EXAM DATE: 11/20/2019 PATIENT NAME: Hanna Guido MR#: [id number] BIRTHDATE: 1970 ATTENDING: Marcelino Castro MD STATUS: inpatient HONING MACHINE OPERATOR: INDICATIONS: The patient is a 49 yr old female here for an EGD due to anemia and melena. PROCEDURE PERFORMED: EGD w/ control of bleeding and EGD w/ biopsy MEDICATIONS: Per Anesthesia ESTIMATED BLOOD LOSS: None CONSENT: The patient understands the risks and benefits of the procedure and understands that these r isks include, but are not limited to: sedation, allergic reaction, infection, perforation and/or bleeding. Alternative means of evaluation and treatment include, among others: physical exam, x-rays, and/or surgical intervention. The patient elects to proceed with this endoscopic procedure. DESCRIPTION OF PROCEDURE: During pre-op preparation period all mechanical and medical equipment was c hecked for proper function. Hand hygiene and appropriate measures for infection prevention was taken. After the risks, benefits and alternatives of the procedure were thoroughly explained, Informed consent was verified, confirmed and timeout was successfully executed by the treatment team. The patient was anesthetized with topical anesthesia and the [id number]-[id number] ([id number]) endoscope was introduced through the mouth and advanced to the second portion of the duoden um. Retroflexion was performed in the stomach and revealed a hiatal hernia. The gastroscope was then slowly withdrawn and removed. The patient's toleration of the procedure was excellent. ESOPHAGUS: A 2 cm hiatal hernia was noted. The z-line was noted at 35cm from the incisors. The z-l ine appeared normal. STOMACH: A single bleeding ulcer ranging between 3-5 mm in size with a visible vessel and active oozi ng of blood was found in the gastric antrum. Cautery was applied to the site. With good treatment effect. Random gastric biopsies obtained to rule out H pylori. DUODENUM: The duodenum was normal. ADVERSE EVENTS: There were no complications. IMPRESSIONS: 1. 2 cm hiatal hernia 2. The z-line was noted at 35cm from the incisors 3. Single ulcer ranging between 3-5 mm in size was found in the gastric antrum; cautery was applied to the site; with good treatment effect 4. Random gastric biopsies obtained to rule out H pylori 5. The duodenum was normal RECOMMENDATIONS: 1. Await biopsy results 2. Take pantoprazole 40mg PO BID for 3 months 3. Clear liquid diet today, if AM hgb stable, then advance to solid diet as tolerated REPEAT EXAM: Return in 3 months for EGD. Marcelino Castro MD eSigned: Marcelino Castro MD 11/20/2019 10:55 AM CC: CPT CODES: 1. 50141 Upper gastrointestinal endoscopy including esophagus, stomach, and either th e duodenum and/or jejunum as appropriate; with control of bleeding, any method 2. 39672 Upper gastrointestinal endoscopy including esophagus, stomach, and either the duodenum and/ or jejunum as appropriate; with biopsy, single or multiple ICD CODES: 285.9 anemia,unspecified 578.1 Blood in stool 553.3 Diaphragmatic hernia without mention of obstruction or gangrene 531.40 Chronic or unspecified gastric ulcer with hemorrhage The ICD and CPT codes recommended by this software are interpretations from the data that the [facility] staff has captured with the software. The verification of the translation of this report to the ICD and CPT co ricky and modifiers is the sole responsibility of the health care institution and practicing physician where this report was generated. [employer] will not be held responsible for the validity of the ICD and CPT codes i ncluded on this report. [employer] assumes no liability for data contained or not contained herein. CPT is a registered tra demark of the [employer]. PATIENT NAME: Hanna Guido MR#: [id number]
[2019-11-20 14:36] VITALS: BP 114/58
--- NOTE | 2019-11-20 14:51 | Diag Imaging Result Doc PS360 ---
EXAM: BONE SCAN, TOTAL BODY INDICATION: Bone mets TECHNIQUE: 25.6 mCi of technetium 99 MDP was administered intravenously and images of the whole body were obtained in usual fashion after administration. COMPARISON: No prior bone scan is available for comparison. FINDINGS: There are several foci of increased uptake associated with ribs on the right and the left. There are also a couple of foci of increased uptake associated with the mid and lower thoracic spine. These probably correspond to one of the innumerable lytic lesions that can be seen on recent prior CTs and recent skeletal survey, which were highly suspicious for metastatic disease or multiple myeloma. There is also mild there is mild increased uptake associated with both hips, more prominent on the right. This is also likely due to the lytic lesions discussed above. Note that there are innumerable lytic lesions throughout the skeleton, including the skull, seen on the other modalities and most are occult on this study. There is increased activity around the right knee. However, this is more likely degenerative. There is normal soft tissue uptake and normal excretion of radiotracer by the system. IMPRESSION: 1.Several foci of increased uptake associated with the ribs bilaterally, the thoracic spine, and both hips that likely correspond to some of the innumerable lytic lesions seen on previous CT and bone survey, which are highly suspicious for malignancy. 2.Increased activity associated with the right knee that is more nonspecific and may be degenerative. Electronically signed by Wyatt Arenas 11/20/2019 2:49 PM
--- NOTE | 2019-11-20 16:53 | DISCHARGE SUMMARY ---
ADMISSION DATE: 11/18/2019 DISCHARGE DATE: 11/20/2019 PRIMARY CARE PHYSICIAN: She has no primary care physician. CHIEF COMPLAINT: She presented complaining of suprapubic pain with nausea, vomiting, black tarry stools. HISTORY OF PRESENT ILLNESS: She is a 49-year-old female who does not speak any [place]ian, presented with complaints of black tarry stools for a couple days about 2 times a day along with nausea and vomiting. She had some emesis described as yellow in color. She had been having dizziness, lightheadedness, being pale, weak, fatigued, and some subjective fevers with chills. Denies any other urinary symptoms other than suprapubic tenderness. There is no abdominal pain anywhere else. There was some lab work that showed hemoglobin of 5, hematocrit is 17. She had some mild iron deficiency. Urinalysis showed urinary tract infection. Abdominal and pelvic CT showed bronchopneumonia, also some lytic lesions through the entire skeleton indicated a questionable metastasis. PAST MEDICAL HISTORY: 1. Pelvic inflammatory disease. 2. Tubo-ovarian abscess. SURGICAL HISTORY: 1. Oophorectomy. 2. Left hand surgery due to accident injection. HOSPITAL COURSE: Admitted with symptomatic anemia, was given some packed red blood cells and started on proton pump inhibitor and Carafate. We treated her for bronchopneumonia with vancomycin and Zosyn. Clinically improved. Questioning whether she had true pneumonia, but she did have some leukocytosis and plan to keep her on Levaquin 500 mg a day for another 7 days. She had urinary sediment and this sounds like she could have possibly had a urinary tract infection. Once again, this was treated. Micro did not grow anything. The blood cultures that were drawn on 11/18 and urine had just mixed leandro. Workup for metastatic cancer done by Dr. Lowe suspicious for multiple myeloma. We checked SPEP, LDH and beta 2 micro globulin. Pelvic exam per [facility] was unremarkable. An EGD was done per Dr. Castro. No complications. A 2 cm hiatal hernia. Z-line was at 35 cm from the incisors. Single ulcer between 3 to 5 mm in size found. Cautery was applied to the site. Random gastric biopsies obtained to rule out Helicobacter pylori. Duodenum was normal. She wanted to go home so we will get her set to go home. She will follow up to pursue treatment for multiple myeloma. Note that the beta 2 microglobulin was high at 3.5. Her serology for influenza nasopharyngeal swabs were unremarkable. DISCHARGE INSTRUCTIONS: We will discharge her home for her to follow with Dr. Lowe and treatment of what appears to be multiple myeloma. We will give her prescription and she will take Protonix 40 mg twice a day for 4 weeks, then go down to once a day and she will take Carafate 1 g p.o. q.6 hours for 4 weeks. We did supplement some potassium and magnesium while she was here. cc: Matthieu Clark MD
[2019-11-20] MEDS ORDERED: PROTONIX PO SCH (21:00)
[2019-11-21] MEDS ORDERED: PROTONIX PO SCH (07:00)
== END 2019-11-20 18:08 | disposition home or self-care (01) | DRG 377 ==
LOC: P.ED 07:58 → SUATTDRO 11:54 → P.EDIPHOLD 11:54 → 3N 19:53
PROVIDERS: ATTEND Emergency Medicine
PROC: EN.HEAT (2019-11-20 10:28)

== ENCOUNTER 2019-12-22 10:57 | Observation (INO) ==
[2019-12-22] MEDS ORDERED: SALINE LOCK IV FLUID XX ONE (11:21)
[2019-12-22] MEDS ORDERED: NS 500 ML IV SCH (12:00)
[2019-12-22] MEDS: NORCO-5 PO PRN (18:48)
[2019-12-22 19:04] LABS: HEMATOCRIT 19.1 % (37.0-47.0)
[2019-12-22 19:07] LABS: HEMOGLOBIN 5.8 g/dL (12.0-16.0)
[2019-12-23 07:51] VITALS: BP 120/71
[2019-12-23] MEDS: NORCO-5 PO PRN (09:59)
== END 2019-12-23 11:29 | disposition home or self-care (01) ==
LOC: DIRADM → EDIPHOLD 10:57 → 3N 14:09
PROVIDERS: ADMIT Internal Medicine Hematology & Oncology; ATTEND Internal Medicine Hematology & Oncology